=== PATIENT | female | born 1960 | race Caucasian/White ===

== ENCOUNTER → 2016-06-18 | Outpatient (CLI) | payer OTHER ==
--- NOTE | 2016-06-18 13:02 | MR ---
EXAMINATION TYPE: MR shoulder RT wo con DATE OF EXAM: 06/18/2016 11:39 AM COMPARISON: NONE HISTORY: Other synovitis and tenosynovitis, unspecifed, pain, burning, stiffness TECHNIQUE: Multiplanar multispin echo imaging of the right shoulder was performed. FINDINGS: Rotator cuff : There is heterogeneity of the supraspinatus tendon compatible with chronic tendinopath y. There is intrasubstance tear at the level of the critical zone. No evidence for focal full-thickne ss tear. Remaining rotator cuff tendons are unremarkable. Bursa: No bursal effusion or thickening is seen. Musculature: There is no muscular tear, contusion, or atrophy. Acromioclavicular joint : There is lateral downsloping of the acromion with subacromial spurring resu lting in impingement. Moderate AC joint arthropathy is detected. Osseous structures : There are no fr actures or regions of abnormal bone marrow signal intensity. Long biceps tendon : The biceps tendon is normally situated within the bicipital groove. No complete or partial biceps tendon tear is present. Glenohumeral Joint fluid : There is no glenohumeral joint effusion. Cartilage and Bone : No focal hyaline cartilage defects are noted. No Hill-Sachs, reverse Hill-Sachs, or bony Bankart lesions are seen. Labrum : There are no SLAP or soft tissue Bankart lesions. No paralabral cysts are seen. OTHER FINDINGS : Small fluid collection adjacent to the inferior glenoid labrum measuring 8.8 mm. IMPRESSION: 1. Supraspinatus chronic tendinopathy and small focal intrasubstance tear secondary to subacromial im pingement.
== END | disposition home or self-care (01) ==
LOC: RADMRIMAIN 11:05
PROVIDERS: ATTEND Nurse Practitioner
DX: S46.811A Strain of other muscles, fascia and tendons at shoulder and upper arm level, right arm, initial encounter (principal)

== ENCOUNTER → 2017-12-08 | Outpatient (CLI) | payer OTHER ==
[2017-12-07 14:18] VITALS: BMI 25.8
[2017-12-08 13:35] VITALS: BP 111/67; PULSE 78; RESP 18
--- NOTE | 2017-12-08 14:11 | P.PAINCN ---
History of Present Illness - Reason for Consult Consult date: 12/08/17 - History of Present Illness This is the initial consultation visit, for this 57 years old female with a chronic history of severe neck pain, with radiation to the shoulder blade area, and to the upper extremity bilaterally, pain started more than 10 years ago, and it gradually increased with intensity, but the intensity of the pain increased significantly over the last 2 years, the pain is constant, increased with any neck movement, interfering with the quality of life, she denies any motor or sensory deficit, she denies any fever or night sweats, and there is no change in the bowel movement or urination, she tried physical therapy without any benefit Past Medical History Additional Past Medical History / Comment(s): WATER RETENTION. ANEMIA. COLITIS. IBS History of Any Multi-Drug Resistant Organisms: None Reported Past Surgical History: Adenoidectomy, Orthopedic Surgery, Tonsillectomy Additional Past Surgical History / Comment(s): RT ELBOW SX. BILAT SHOULDER SX. COLONOSCOPY. MASS REMOVED LT HIP AT AGE 9 Past Anesthesia/Blood Transfusion Reactions: No Reported Reaction Smoking Status: Never smoker - Past Family History Mother Family Medical History: No Reported History Medications and Allergies Home Medications Medication Instructions Recorded Confirmed Type Celexa Dose Unknown 30 mg PO DAILY 12/07/17 12/08/17 History Hydrochlorothiazide Dose Unkn 25 mg PO DAILY 12/07/17 12/08/17 History Valium Dose Unknown 10 mg PO BID 12/07/17 12/08/17 History Xanax Dose Unknown 1 mg PO Q12H PRN 12/07/17 12/08/17 History Allergies Allergy/AdvReac Type Severity Reaction Status Date / Time No Known Allergies Allergy Verified 12/08/17 13:15 Physical Exam Vitals: Vital Signs Pulse Resp BP Pulse Ox 12/08/17 13:34 78 18 111/67 97 Social history : not smoker , NO ETOH , NO Illegal drugs use . Review of Systems : 1- Constitutional : no chills , no fever , no night sweats , 2- Ears : no ear discharge , no change in hearing 3-Nose, Mouth ,Throat ; no bleeding gums, no sore throat , no epistaxis , 4-Cardiovascular : Denies chest pain, , no orthopnea , no palpitation 5-Respiratory : Denies cough , no dyspnea , no hemoptysis 6-Gastrointestinal :, no change in bowel habits , no coffee- ground emesis . 7-Genitourinary : No hematuria , no discharge , no incontinence, 8-Musculoskeletal : No gait dysfunction , report neck pain , 9- Neurological : no ataxia , no tremor , no sezure , 10-Psychatric , no suicidal ideation no hallucination 11- Endocrine : no cold intolerence , no polyuria , no polydypsia , 12-Hematologic : no easy bleeding , no easy brusing , 13-Allergic / immunology : no angioedema , no wheezing ,no allergic rhinitis 14-Integumentary : no brttle nails , no change hair / nails , no foot/leg ulcers . Physical Examinations : 1-Constitutional : Cooperative , not in acute distress . 2-HEENT : nech ; supple , no Lymphadenopathy , no Thyromegaly , :eyes , no icterus, no photophobia . ENT : , normal oropharynx , no Thrush 3- Respiratory : Chest clear to auscultations Bilaterally , no wheezing . 4- Cardiovascular : regular rate and rhythem , S1 , S2 , no S3 , no S4. 5- Gastrointestinal: abdomen soft no tenderness , no organomegally . 6- Genitourinary : Defferred . 7-Integumentary : No cellulitis , no ulcers , normal skin turgor , no cyanotic . 8- neurologic : Cranial nerve II to XII intact , no focal neurological deffecit 9-psychatric : alert , oriented X 3 , appropriate affect , intact judgment and insight . 10-Lymphatic : no Lymphadenopathy. 11- musculoskeltal: normal gait Cervical Spine motor stregnth in the deltoid and biceps, normal right side , normal Left side motor stregnth biceps and the wrist extensors normal right side ,normal left side . motor stregnth in the triceps muscle . normal Right side , normal Left side deep tendon reflexes normal at the biceps , normal at Brachioradialis , normal at triceps. positive cervical facet loading test . Abduction of the right shoulder associated with pain, Shoulder joint for range of motion bilaterally. Lumber spine moter stegnth lower extremities ,thigh and legs 5/5 Right side , 5/5 Left side Results Comments: MRI of the lumbar spine done at some MRI showed multilevel cervical facet arthropathy from C3 to C7, and multilevel cervical degenerative disc disease Assessment and Plan Plan: Assessment and plan=1-cervical spondylosis with cervical facet arthropathy without myelopathy. 2-cervical degenerative disc disease. Patient will be scheduled to have diagnostic medial branch block cervical area C3-4 , to C6-7 x2 and if it is positive then will proceed with RFA Time with Patient: Greater than 30 PQRS Measure Charge Sheet Measure #226: Tobacco Use: Screen & Cessation Intervention: Pt not a tobacco user Measure #111: Pneumonia Vaccination: Pneumococcal vaccine administered or previously received Measure #47: Advance Care Plan: Advance care planning discussed & documented, pt chose/unable to give Measure #412: Opioid Treatment Agreement: No documentation of signed opioid treatment agreement Measure #408: Opioid Therapy Follow-up Evaluation: Patient had NO f/u eval minimum every 3 months during opioid therapy Measure #317: Preventitive Care & Scrn High Bld Press & F/U: Normal blood pressure, f/u not required Measure #128: Body Mass Index (BMI) Screening & Follow-up: BMI documented within normal parameters Measure #131: Pain Assessment & Follow-up: Pain positive & plan documented, Follow-up scheduled Measure #431: Unhealthy Alcohol Use Preventative Care & Scrn: Patient not identified as an unhealthy alcohol user PQRS Narrative: Smoking Status Never smoker Do You Want the Pneumonia Vaccine Up to Date Vaccine AT THIS TIME? Blood Pressure 111/67 Pain Intensity [Upper Back] 10 Hx Alcohol Use (MH) No Home Medications: Ambulatory Orders Celexa Dose Unknown 30 mg PO DAILY 12/07/17 Hydrochlorothiazide Dose Unkn 25 mg PO DAILY 12/07/17 Valium Dose Unknown 10 mg PO BID 12/07/17 Xanax Dose Unknown 1 mg PO Q12H PRN 12/07/17
== END | disposition home or self-care (01) ==
LOC: PNWHC3 13:04
PROVIDERS: ATTEND Specialist
DX: G89.29 Other chronic pain (principal); M54.2 Cervicalgia; M50.30 Other cervical disc degeneration, unspecified cervical region; M47.812 Spondylosis without myelopathy or radiculopathy, cervical region; M46.82 Other specified inflammatory spondylopathies, cervical region; Z90.89 Acquired absence of other organs; Z98.890 Other specified postprocedural states; Z79.899 Other long term (current) drug therapy
CPT/HCPCS: 99211

== ENCOUNTER → 2017-12-28 | Day surgery (SDC) | payer OTHER ==
[2017-12-23 11:04] VITALS: BMI 24.8
[~2017-12-28] MED LIST: SODIUM CHLORIDE 0.9% 500 ML 500 ML IV ONE; SODIUM CHLORIDE 0.9% 500 ML 500 ML IV SCH
[2017-12-28 09:50] VITALS: RESP 18; TEMP 98.2
--- NOTE | 2017-12-28 10:36 | P.PCN ---
Date of Procedure: 12/28/17 Surgeon: Emiliana Urrutia Pathology: none sent Condition: stable Disposition: PACU Description of Procedure: PREOPERATIVE DIAGNOSIS: Cervical Spondylosis with Facet Arthropathy.without myelopathy POSTOPERATIVE DIAGNOSIS: Cervical Spondylosis Facet Arthropathy. Without myelopathy PROCEDURES: Diagnostic Bilateral C4,C5,6,and 7 medial branchs block with fluoroscopic guidance ANESTHESIA: Local with 1% lidocaine; IV sedation with Versed. EBL: Minimal PROCEDURE INDICATION: The patient with neck pain secondary to cervical arthropathy unresponsive to more conservative treatments. PROCEDURE DESCRIPTION / TECHNIQUE: The patient was seen and identified in the preoperative area. Risks, benefits, complications, and alternatives were discussed with the patient, the patient agreed to proceed with the procedure and signed the consent. IV was started. Vital signs remained stable throughout the procedure. Patient was taken to the OR and time out was completed. The patient was placed in the supine position on the procedure table. . The cervical area was prepped with chloraprep and draped in the usual sterile fashion. Critical pause was taken. Vital signs were closely monitored during the procedure. Conscious sedation was used during the procedure to decrease patients anxiety. Using cross-table lateral fluoroscopy, the centroid of the trapezoid ofC4, C5 , C6 and the superior articular proceess of C7, was identified, marked, and localized with 1% lidocaine 1 ml at each level for skin and Sub Q infiltrations . Subsequently, a 25 G 3.5 inch spinal needle was advanced guided by fluoroscopy to the centroid of the trapezoid of C4, C5, C6 ,and the superior articular proceess of C7 . Subsequently, 3 ml of preservative-free Bupivacaine 0.5% mixed with Dexamethasone 10 mg and half ml of the mixture was injected at each level after negative aspiration for blood and CSF. [place] were then removed intact the same procedure was repeated at the left side. COMPLICATIONS: No acute complications. COMMENTS: DISPOSITION / PLANS: The patient was placed in a supine position and transferred to the recovery area in a stable condition for observation and was discharged from the recovery room after meeting discharge criteria. Home discharge instructions given to the patient by the staff. The patient was reexamined prior to discharge. The patient will schedule a follow up in the clinic in 2-4 weeks.
[2017-12-28 11:19] VITALS: BP 117/59; PULSE 66
--- NOTE | 2017-12-28 12:21 | FL ---
Fluoroscopy HISTORY: Pain 28 seconds fluoroscopy time supplied to the referring clinician. 7 intraoperative C-arm images docum ent the procedure. See dictated report from anesthesia.
== END ==
LOC: ORPAIN 07:11
PROVIDERS: ATTEND Anesthesiology
DX: M47.812 Spondylosis without myelopathy or radiculopathy, cervical region (principal); D64.9 Anemia, unspecified; K58.9 Irritable bowel syndrome, unspecified
CPT/HCPCS: 64490; 64491; 64492; J2250; J1100; 99152; 99153

== ENCOUNTER 2018-01-18 06:17 | Day surgery (SDC) | payer OTHER ==
[2018-01-16 15:18] VITALS: BMI 24.8
[2018-01-18] MEDS ORDERED: SODIUM CHLORIDE 0.9% 500 ML 500 ML IV SCH (07:00)
[2018-01-18 07:09] VITALS: TEMP 97.4
[2018-01-18] MEDS ORDERED: LACTATED RINGERS 1,000 ML IV ONE (07:16)
--- NOTE | 2018-01-18 07:47 | P.PCN ---
Date of Procedure: 01/18/18 Surgeon: Jad Davis Description of Procedure: PREOPERATIVE DIAGNOSIS: Cervical Spondylosis with Facet Arthropathy.without myelopathy POSTOPERATIVE DIAGNOSIS: Cervical Spondylosis Facet Arthropathy. Without myelopathy PROCEDURES: Diagnostic , bilateral C4, C5, C6 medial branch blocks, with fluoroscopic guidance ANESTHESIA: Local with 1% lidocaine; IV sedation with Versed. EBL: Minimal PROCEDURE INDICATION: The patient with neck pain secondary to cervical arthropathy unresponsive to more conservative treatments. She reports greater than 50% reduction of her pain from her first cervical medial branch nerve block. She presents today for her second block. She reports intractable pain bilaterally in her neck. PROCEDURE DESCRIPTION / TECHNIQUE: The patient was seen and identified in the preoperative area. Risks, benefits, complications, and alternatives were discussed with the patient, the patient agreed to proceed with the procedure and signed the consent. IV was started. Vital signs remained stable throughout the procedure. Patient was taken to the OR and time out was completed. The patient was placed in the prone position on the procedure table. A pillow was placed under the patients chest to increase the cervical interlaminar space. The cervical area was prepped and draped in the usual sterile fashion. Critical pause was taken. Vital signs were closely monitored during the procedure. Conscious sedation was used during the procedure to decrease patients anxiety. Using cross-table lateral fluoroscopy, the centroid of the trapezoid of the right side of the first level was identified, marked, and localized with 1% lidocaine 1 ml at each level for skin and subcutaneous infiltrations . Subsequently, a 25 G spinal needle was advanced guided by fluoroscopy to the centroid of the trapezoid . [place] tip position was confirmed at the centroid of the trapezoids anteroposterior fluoroscopy. Subsequently, 1 mL of 0.25% bupivacaine with 7 mg of Depo-Medrol was injected at each level. COMPLICATIONS: No acute complications. COMMENTS: DISPOSITION / PLANS: The patient was placed in a supine position and transferred to the recovery area in a stable condition for observation and was discharged from the recovery room after meeting discharge criteria. Home discharge instructions given to the patient by the staff. The patient was reexamined prior to discharge. She will follow-up in the pain clinic to evaluate for possible radio frequency ablation.
[2018-01-18] MEDS ORDERED: IV FLUID CONTINUATION 1,000 ML IV ONE ×2 (07:50)
[2018-01-18 08:14] VITALS: BP 110/62; PULSE 73; RESP 16
--- NOTE | 2018-01-18 12:06 | FL ---
Fluoroscopy HISTORY: Pain 7 seconds fluoroscopy time supplied to the referring clinician. 1 intraoperative C-arm images docume nt the procedure. See dictated report from anesthesia.
--- NOTE | 2018-01-20 17:41 | CDI ---
Outpatient Documentation Clarification Form Date: 01/20/18 CDS/Automated Access Systems Technician Name: Andra Degroot Phone: If any questions, call Lindsey Feliciano [facility] at [phone] Patient Name: Akiko Alicea Admit Date: 01/18/18 Discharge Date: 01/18/18 ATTENTION: The [facility] Coding Staff appreciate your assistance in clarifying documentation. Please respond to the clarification below the line at the bottom and electronically sign. The [facility] Coding staff will review the response and follow-up if needed. Please note: Queries are made part of the Legal Health Record. If you have any questions, please contact the [facility]. Dear Dr. Davis, How many levels were injected? It is not clear from the documentation how many levels C4, C5, C6 is. It could mean C4-C5 and C5-C6, which is two levels. And perhaps C3-C4 and/or C6-C7 could have been injected, as well. As you can see, we need it documented more clearly. Thank you for your kind consideration. MTDD
== END 2018-01-18 08:23 | disposition home or self-care (01) ==
LOC: ORPAIN 06:17
PROVIDERS: ATTEND Pain Medicine Pain Medicine
DX: M47.812 Spondylosis without myelopathy or radiculopathy, cervical region (principal); D64.9 Anemia, unspecified; K58.9 Irritable bowel syndrome, unspecified
CPT/HCPCS: 64490; 64491; 64492; J2250; J1030

== ENCOUNTER → 2018-02-20 | Outpatient (CLI) | payer OTHER ==
[2018-02-20 12:03] VITALS: BP 110/71; PULSE 66; RESP 16
--- NOTE | 2018-02-20 12:51 | P.PAINPG ---
Subjective Progress Note Date: 02/20/18 This is follow up visit, for this 57 years old female with a chronic history of severe neck pain, with radiation to the shoulder blade area, and to the upper extremity , she is diagnosed with cervical spondylosis with cervical facet arthropathy, and cervical degenerative disc disease, recently we have done diagnostic medial branch block cervical area C4-5/C5-6/C6-7 bilaterally patient pain improved after the diagnostic medial branch block patient with more than 50% improvement of neck pain on 2 different occasions with only for short-term, pain was 10 over 10 before the block decreased to 0 out of 10 after the block , she continued to have severe neck pain , the pain is constant, increased with any neck movement, interfering with the quality of life, she denies any motor or sensory deficit, she denies any fever or night sweats, and there is no change in the bowel movement or urination, she tried physical therapy without any benefit Past Medical History Additional Past Medical History / Comment(s): WATER RETENTION. ANEMIA. COLITIS. IBS History of Any Multi-Drug Resistant Organisms: None Reported Past Surgical History: Adenoidectomy, Orthopedic Surgery, Tonsillectomy Additional Past Surgical History / Comment(s): RT ELBOW SX. BILAT SHOULDER SX. COLONOSCOPY. MASS REMOVED LT HIP AT AGE 9 Past Anesthesia/Blood Transfusion Reactions: No Reported Reaction Smoking Status: Never smoker Physical Examinations : 1-Constitutional : Cooperative , not in acute distress . 2-HEENT : nech ; supple , no Lymphadenopathy , no Thyromegaly , :eyes , no icterus, no photophobia . ENT : , normal oropharynx , no Thrush 3- Respiratory : Chest clear to auscultations Bilaterally , no wheezing . 4- Cardiovascular : regular rate and rhythem , S1 , S2 , no S3 , no S4. 5- Gastrointestinal: abdomen soft no tenderness , no organomegally . 6- Genitourinary : Defferred . 7-Integumentary : No cellulitis , no ulcers , normal skin turgor , no cyanotic . 8- neurologic : Cranial nerve II to XII intact , no focal neurological deffecit 9-psychatric : alert , oriented X 3 , appropriate affect , intact judgment and insight . 10-Lymphatic : no Lymphadenopathy. 11- musculoskeltal: normal gait Cervical Spine motor stregnth in the deltoid and biceps, normal right side , normal Left side motor stregnth biceps and the wrist extensors normal right side ,normal left side . motor stregnth in the triceps muscle . normal Right side , normal Left side deep tendon reflexes normal at the biceps , normal at Brachioradialis , normal at triceps. positive cervical facet loading test . Abduction of the right shoulder associated with pain, Shoulder joint for range of motion bilaterally. Lumber spine moter stegnth lower extremities ,thigh and legs 5/5 Right side , 5/5 Left side Results Comments: MRI of the cervical spine, showed multilevel cervical facet arthropathy from C3 to C7, and multilevel cervical degenerative disc disease Assessment and Plan Plan: Assessment and plan=1-cervical spondylosis with cervical facet arthropathy without myelopathy. 2-cervical degenerative disc disease. Status post diagnostic medial branch block cervical area C4-5 /C5-6 /C6-7 on 2 different occasions She had more than 50% improvement in the pain level after each bout and she would be good candidate to have radiofrequency ablation of the medial branch cervical area we will start with the right-sided first and we will do the left side later PQRS Measure Charge Sheet Measure #130: Documentation of Current Meds in Medical Chart: Patient's medications documented in chart Measure #226: Tobacco Use: Screen & Cessation Intervention: Pt not a tobacco user Measure #111: Pneumonia Vaccination: Pneumococcal vaccine NOT administered or previously given Measure #47: Advance Care Plan: Advance care planning discussed & documented, pt chose/unable to give Measure #412: Opioid Treatment Agreement: No documentation of signed opioid treatment agreement Measure #408: Opioid Therapy Follow-up Evaluation: Patient had NO f/u eval minimum every 3 months during opioid therapy Measure #317: Preventitive Care & Scrn High Bld Press & F/U: Normal blood pressure, f/u not required Measure #128: Body Mass Index (BMI) Screening & Follow-up: BMI documented ABOVE normal parameters - f/u documented Measure #131: Pain Assessment & Follow-up: Pain positive & plan documented, Follow-up scheduled Measure #431: Unhealthy Alcohol Use Preventative Care & Scrn: Patient not identified as an unhealthy alcohol user PQRS Narrative: Smoking Status Never smoker Hx Alcohol Use (MH) No Home Medications: Ambulatory Orders ALPRAZolam [Xanax] 1 mg PO BID 12/23/17 Citalopram Hydrobromide [CeleXA] 30 mg PO DAILY 12/23/17 Diazepam [Valium] 10 mg PO BID 12/23/17 Hydrochlorothiazide [Hydrodiuril] 25 mg PO DAILY 12/23/17 Ibuprofen [Motrin] 1,200 mg PO BID PRN 02/20/18 Controlled Substance Measures - Controlled Substance Measures Is patient prescribed a controlled substance at discharge?: No
== END ==
LOC: PNWHC3 11:33
PROVIDERS: ATTEND Specialist
DX: M50.30 Other cervical disc degeneration, unspecified cervical region (principal); M47.812 Spondylosis without myelopathy or radiculopathy, cervical region; M46.82 Other specified inflammatory spondylopathies, cervical region; Z79.899 Other long term (current) drug therapy
CPT/HCPCS: 99211

== ENCOUNTER 2018-03-07 06:57 | Day surgery (SDC) | payer OTHER ==
[~2018-03-07 06:57] MED LIST changes: -SODIUM CHLORIDE 0.9% 500 ML 500 ML IV ONE
[2018-03-07 07:10] VITALS: RESP 16; TEMP 97.2
[2018-03-07] MEDS ORDERED: LIDOCAINE 1% 20 ML VIAL (10MG/ML) FOR IV START INTRADERMA ONE (07:10)
[2018-03-07] MEDS ORDERED: IV FLUID CONTINUATION 1,000 ML IV ONE ×2 (07:10→08:42)
--- NOTE | 2018-03-07 08:36 | P.PCN ---
Date of Procedure: 03/07/18 Surgeon: Emiliana Urrutia Pathology: none sent Condition: stable Disposition: PACU Description of Procedure: PREOPERATIVE DIAGNOSIS: Cervical spondylosis with Facet Arthropathy without myelopathy. POSTOPERATIVE DIAGNOSIS: Cervical spondylosis with Facet Arthropathy without myelopathy. PROCEDURES: Radiofrequency thermocoagulation, C5, C6, and C7 medial branch with Fluroscopy [place] ANESTHESIA: Local with 1% lidocaine; IV moderate conscious sedation with fentanyl and Versed. EBL: Minimal PROCEDURE INDICATION: The patient with neck pain secondary to cervical arthropathy who had more than 50% relief of her pain with previous diagnostic cervical medial branch block. PROCEDURE DESCRIPTION / TECHNIQUE: The patient was seen and identified in the preoperative area. Risks, benefits, complications, and alternatives were discussed with the patient, the patient agreed to proceed with the procedure and signed the consent. IV was started. Vital signs remained stable throughout the procedure. Patient was taken to the OR and time out was completed. The patient was placed in the prone position on the procedure table. A pillow was placed under the patients chest to increase the cervical interlaminar space. The cervical area was prepped and draped in the usual sterile fashion. Critical pause was taken. Vital signs were closely monitored during the procedure. Conscious sedation was used during the procedure to decrease patients anxiety. Using cross-table lateral fluoroscopy, the center of the trapezoid-shaped cervical pillars of C5, C6,and the superior articular process of C7 were identified, marked, and localized with 1% lidocaine. Subsequently, a 20 [id number] radiofrequency cannula with a 10-mm active tip was advanced guided by fluoroscopy to the target points mentioned above. . Each site then underwent motor testing at 2 Hz and 0 to 3 volt with local stimulation, but no radicular symptoms down the arm. Thereafter C5 ,C6 and C7 sites underwent radiofrequency thermocoagulation at 80 degrees celsius for 90 seconds . Before thermocoagulation, 1 ml of the block solution containing Kenalog 40 mg and 2 mL of preservative-free normal saline was injected at the C5,C6, and C7 levels after negative aspiration of CSF and blood and with no paresthesias. Cannulas were retracted. Skin was cleansed and bandages were applied. COMPLICATIONS: No acute complications. COMMENTS: DISPOSITION / PLANS: The patient was placed in a supine position and transferred to the recovery area in a stable condition for observation and was discharged from the recovery room after meeting discharge criteria. Home discharge instructions given to the patient by the staff. The patient was reexamined prior to discharge.
[2018-03-07 09:03] VITALS: BP 112/70; PULSE 63
--- NOTE | 2018-03-08 10:39 | FL ---
Fluoroscopy HISTORY: Pain 15 seconds fluoroscopy time supplied to the referring clinician. 2 intraoperative C-arm images docum ent the procedure. See dictated report from anesthesia.
== END 2018-03-07 09:18 | disposition home or self-care (01) ==
LOC: ORPAIN 06:57
PROVIDERS: ATTEND Anesthesiology
DX: M47.812 Spondylosis without myelopathy or radiculopathy, cervical region (principal); D64.9 Anemia, unspecified
CPT/HCPCS: 64634 ×2; 64633; J2250; J3301; J3010; 99152; 99153

== ENCOUNTER 2018-04-20 06:36 | Day surgery (SDC) | payer OTHER ==
[2018-04-17 12:54] VITALS: BMI 24.8
[2018-04-20 07:18] VITALS: TEMP 97.6
[2018-04-20] MEDS ORDERED: LACTATED RINGERS 1,000 ML IV ONE (07:25)
[2018-04-20] MEDS ORDERED: LIDOCAINE 1% 20 ML VIAL (10MG/ML) FOR IV START INTRADERMA ONE (07:26)
--- NOTE | 2018-04-20 08:26 | P.PCN ---
Date of Procedure: 04/20/18 Surgeon: Emiliana Urrutia Pathology: none sent Condition: stable Disposition: PACU Description of Procedure: PREOPERATIVE DIAGNOSIS: Cervical spondylosis with Facet Arthropathy without myelopathy. POSTOPERATIVE DIAGNOSIS: Cervical spondylosis with Facet Arthropathy without myelopathy. PROCEDURES: Left Radiofrequency thermocoagulation, C5, C6, and C7 medial branch with Fluroscopy Guidence ANESTHESIA: Local with 1% lidocaine; IV moderate conscious sedation with fentanyl and Versed. EBL: Minimal PROCEDURE INDICATION: The patient with neck pain secondary to cervical arthropathy who had more than 50% relief of her pain with previous diagnostic cervical medial branch block. PROCEDURE DESCRIPTION / TECHNIQUE: The patient was seen and identified in the preoperative area. Risks, benefits, complications, and alternatives were discussed with the patient, the patient agreed to proceed with the procedure and signed the consent. IV was started. Vital signs remained stable throughout the procedure. Patient was taken to the OR and time out was completed. The patient was placed in the prone position on the procedure table. A pillow was placed under the patients chest to increase the cervical interlaminar space. The cervical area was prepped and draped in the usual sterile fashion. Critical pause was taken. Vital signs were closely monitored during the procedure. Conscious sedation was used during the procedure to decrease patients anxiety. Using cross-table lateral fluoroscopy, the center of the trapezoid-shaped cervical pillars of C5, C6,and the superior articular process of C7 were iden tified, marked, and localized with 1% lidocaine. Subsequently, a 20 [id number] radiofrequency cannula with a 10-mm active tip was advanced guided by fluoroscopy to the target points mentioned above. . Each site then underwent motor testing at 2 Hz and 0 to 3 volt with local stimulation, but no radicular symptoms down the arm. Thereafter C5 ,C6 and C7 sites underwent radiofrequency thermocoagulation at 80 degrees celsius for 90 seconds . Before thermocoagulation, 1 ml of the block solution containing Kenalog 40 mg and 2 mL of preservative-free normal saline was injected at the C5,C6, and C7 levels after negative aspiration of CSF and blood and with no paresthesias. Cannulas were retracted. Skin was cleansed and bandages were applied. COMPLICATIONS: No acute complications. COMMENTS: DISPOSITION / PLANS: The patient was placed in a supine position and transferred to the recovery area in a stable condition for observation and was discharged from the recovery room after meeting discharge criteria. Home discharge instructions given to the patient by the staff. The patient was reexamined prior to discharge.
[2018-04-20] MEDS ORDERED: IV FLUID CONTINUATION 1,000 ML IV ONE (08:30)
[2018-04-20 08:32] VITALS: RESP 16
--- NOTE | 2018-04-20 08:42 | FL ---
Fluoroscopy HISTORY: Pain 13 seconds fluoroscopy time supplied to the referring clinician. 2 intraoperative C-arm images docum ent the procedure. See dictated report from anesthesia.
[2018-04-20 08:47] VITALS: BP 105/64; PULSE 76
== END 2018-04-20 09:11 | disposition home or self-care (01) ==
LOC: ORPAIN 06:36
PROVIDERS: ATTEND Anesthesiology
DX: M47.812 Spondylosis without myelopathy or radiculopathy, cervical region (principal); K58.9 Irritable bowel syndrome, unspecified; Z86.2 Personal history of diseases of the blood and blood-forming organs and certain disorders involving the immune mechanism
CPT/HCPCS: 64633; 64634; J2250; J3301; J3010; 99152

== ENCOUNTER → 2018-05-09 | Outpatient (CLI) | payer OTHER ==
--- NOTE | 2018-05-09 11:57 | P.PAINPG ---
Subjective Progress Note Date: 05/09/18 Akiko is a very pleasant 58-year-old female presents today for follow-up exam. She is status post radiofrequency ablation of the C5, C6, C7 levels on both sides. She reports that she has excellent relief with the ablations. She reports that most of her pain is is gone. She reports that she has better range of motion is able to do more. She she was previously unable to participate in physical therapy secondary to her pain but wants to go back at this point. She denies any new radicular symptoms. She endorses chronic numbness in her fingers at times but reports that her edge stainer strength is normal. She feels that her arms are weak chronically and is why she was to be back in physical therapy. She does not take any pain medications and rarely uses any [id number] Motrin. Objective - Exam PHYSICAL EXAM: Constitutional: Awake and alert no distress Cardiovascular exam: Regular rate, no lower extremity edema, palpable pulses bilaterally Respiratory exam: No audible wheezing, no accessory muscle usage Abdominal exam: Soft nontender Muscular skeletal exam: - Cervical spine: Nontender to palpation bilaterally. Range of motion is slightly limited to the left side bending but otherwise range of motion is normal. Spurling is negative bilateral. Facet loading is negative bilaterally - Lumbar spine: Preserved lumbar lordosis. No changes in skin. Minimal tenderness to palpation bilateral. Patient has full range of motion in flexion and extension as well as lateral sidebending. Straight leg raise is negative. Facet loading is negative. Nontender over the SI joints. Neuro exam: Normal sensation bilateral upper and lower extremities. Deep tendon reflexes are 2+ bilaterally. Vilchis's is negative Psychiatric exam: Cooperative, good insight Assessment and Plan Assessment: Cervical spondylosis without myelopathy Plan: Akiko is status post radiofrequency ablation of both sides cervical spine. At this point she is doing very well. I advised her to continue with her physical therapy and continue with moderate exercise. I advised her that we do not need to see her in the near future unless she has any problems. She'll give us a call if she has any new pain symptoms in the future. PQRS Measure Charge Sheet Measure #130: Documentation of Current Meds in Medical Chart: Patient's medications documented in chart Measure #226: Tobacco Use: Screen & Cessation Intervention: Pt not a tobacco user Measure #111: Pneumonia Vaccination: Pneumococcal vaccine administered or previously received Measure #47: Advance Care Plan: Advance care planning discussed & documented, pt chose/unable to give Measure #412: Opioid Treatment Agreement: No documentation of signed opioid treatment agreement Measure #317: Preventitive Care & Scrn High Bld Press & F/U: Normal blood pressure, f/u not required Measure #128: Body Mass Index (BMI) Screening & Follow-up: BMI documented within normal parameters Measure #131: Pain Assessment & Follow-up: Pain positive & plan documented, Follow-up PRN Measure #431: Unhealthy Alcohol Use Preventative Care & Scrn: Patient not identified as an unhealthy alcohol user PQRS Narrative: Smoking Status Never smoker Hx Alcohol Use (MH) No Home Medications: Ambulatory Orders ALPRAZolam [Xanax] 1 mg PO BID PRN 12/23/17 Citalopram Hydrobromide [CeleXA] 30 mg PO QAM 12/23/17 Diazepam [Valium] 10 mg PO BID PRN 12/23/17 Ibuprofen [Motrin] 800 mg PO BID PRN 03/03/18 Controlled Substance Measures - Controlled Substance Measures Is patient prescribed a controlled substance at discharge?: No
[2018-05-09 12:30] VITALS: BP 105/72; PULSE 72; RESP 16
== END | disposition home or self-care (01) ==
LOC: PNWHC3 11:19
PROVIDERS: ATTEND Hospitalist
DX: M47.812 Spondylosis without myelopathy or radiculopathy, cervical region (principal); Z98.890 Other specified postprocedural states
CPT/HCPCS: 99211